=== PATIENT | male | born 1995 ===

== ENCOUNTER 2017-03-16 16:31 | Emergency (ER) | payer BC ==
[2017-03-16 16:38] VITALS: BP 110/61; PULSE 72; RESP 16; TEMP 98.6; O2SAT 98
--- NOTE | 2017-03-16 17:07 | ED PDOC ---
Lower Extremity Pain/Injury Time Seen by Provider: 03/16/17 17:00 Chief Complaint (Nursing): Lower Extremity Problem/Injury Chief Complaint (Provider): Right Ankle Pain History Per: Patient History/Exam Limitations: no limitations Onset/Duration Of Symptoms: Hrs Current Symptoms Are (Timing): Still Present Additional Complaint(s): Kris Grant is a 21 year old male that presents to the ED after he sustained an injury to his right ankle while playing soccer. Patient reports that while he was running he ran into another player, with his knee striking the other player's knee. Patient states he then inverted his right ankle, causing his right ankle pain. Past Medical History Reviewed: Historical Data, Nursing Documentation, Vital Signs Vital Signs: Last Vital Signs Temp 98.6 F 03/16/17 16:34 Pulse 72 03/16/17 16:34 Resp 16 03/16/17 16:34 BP 110/61 03/16/17 16:34 Pulse Ox 98 03/16/17 16:34 - Medical History PMH: No Chronic Diseases - Family History Family History: States: Unknown Family Hx - Home Medications Home Medications: Ambulatory Orders Medication Instructions Recorded Naproxen 1 tab PO Q12 PRN #14 tab 03/16/17 - Allergies Allergies/Adverse Reactions: Allergies Allergy/AdvReac Type Severity Reaction Status Date / Time No Known Allergies Allergy Verified 03/16/17 16:34 Review of Systems Musculoskeletal: Positive for: Leg Pain (right ankle pain) Physical Exam - Reviewed Nursing Documentation Reviewed: Yes Vital Signs Reviewed: Yes - Physical Exam Appears: Positive for: Non-toxic, No Acute Distress Head Exam: Positive for: ATRAUMATIC, NORMOCEPHALIC Skin: Positive for: Normal Color, Warm Eye Exam: Positive for: Normal appearance, EOMI, PERRL Cardiovascular/Chest: Positive for: Regular Rate, Rhythm. Negative for: Murmur Respiratory: Positive for: Normal Breath Sounds. Negative for: Wheezing Pulses-Dorsalis Pedis (L): 2+ Pulses-Dorsalis Pedis (R): 2+ Pulses-Post. Tibialis (L): 2+ Pulses-Post. Tibialis (R): 2+ Extremity: Positive for: Other (Pain to right achilles tendon, but able to flex and extend right toe without difficulty. Pain behind right medial malleolus. 5/ 5 strength in all extremities. ). Negative for: Normal ROM (limited ROM right ankle due to pain) Neurologic/Psych: Positive for: Alert, Oriented. Negative for: Motor/Sensory Deficits - ECG O2 Sat by Pulse Oximetry: 98 (RA) Pulse Ox Interpretation: Normal - Progress ED Course And Treament: xry of tib fib: neg for fx xry of ankle: neg for fx xry of heel: neg for fx Patient has moderate pain by achilles tendon/heel. ?fatpad noted posterior d/ w podiatry resident seen by resident in ED. placed in posterior splint. Will f/u with dr. urena this week. Medical Decision Making Medical Decision Making: Impression: Right Ankle Injury Plan: * X-Ray Right Ankle * X-Ray Right Knee * X-Ray Right Tibia Fibula * Reevaluation Scribe Attestation: Documented by Rasheeda Smith, acting as a scribe for Ivory Ramirez PA-C. Provider Scribe Attestation: All medical record entries made by the Scribe were at my direction and personally dictated by me. I have reviewed the chart and agree that the record accurately reflects my personal performance of the history, physical exam, medical decision making, and the department course for this patient. I have also personally directed, reviewed, and agree with the discharge instructions and disposition. Disposition - Clinical Impression Clinical Impression: Ankle injury - Patient ED Disposition Is Patient to be Admitted: No - Disposition Referrals: Chip Crespo MD [Staff Provider] - Disposition Time: 20:36 Condition: FAIR Additional Instructions: PLEASE F/U WITH DR. UREAN [facility] DYANA URENA Prescriptions: Naproxen 1 tab PO Q12 PRN #14 tab PRN Reason: Pain, Moderate (4-7) Instructions: Ankle Sprain (ED) Forms: [employer] (Luxembourgish), [facility] ED School/Work Excuse Print Language: GU[place]
--- NOTE | 2017-03-16 18:16 | RAD ---
PROCEDURE: Radiographs of the right tibia and fibula. HISTORY: INJURY COMPARISON: None available. TECHNIQUE: Frontal and lateral views obtained. FINDINGS: BONES: No fracture or destructive lesion. JOINT SPACES: Unremarkable. OTHER FINDINGS: None. IMPRESSION: Unremarkable radiographs of the right tibia and fibula.
--- NOTE | 2017-03-16 18:17 | RAD ---
PROCEDURE: Right Ankle Radiographs. HISTORY: ANKLE INJURY COMPARISON: None FINDINGS: BONES: Normal. No fracture. JOINTS: Normal. No osteoarthritis. Ankle mortise maintained. Talar dome intact. Subtalar joint is unremarkable. No ankle joint effusion is seen. Base of the 5th metatarsal is intact. SOFT TISSUES: Normal. OTHER FINDINGS: None. IMPRESSION: Normal right ankle radiographs.
--- NOTE | 2017-03-16 18:18 | RAD ---
PROCEDURE: Right Knee Radiographs. HISTORY: KNEE INJURY COMPARISON: None. FINDINGS: BONES: Normal. No fracture. Three views were performed with 4 images to cover the patellar region. JOINTS: Normal. No osteoarthritis. JOINT EFFUSION: No joint effusion. OTHER FINDINGS: Mild prepatellar soft tissue swelling is not excluded. No loose body is seen. IMPRESSION: No fracture.
--- NOTE | 2017-03-17 08:29 | RAD ---
PROCEDURE: Radiographs of the right calcaneus/hindfoot. HISTORY: HEEL INJURY COMPARISON: None available. TECHNIQUE: Frontal and lateral radiographs of the calcaneus. FINDINGS: No fracture or joint dislocation. No focal lesion. No calcaneal spur. IMPRESSION: Unremarkable radiographs of the right calcaneus /hindfoot.
--- NOTE | 2017-03-17 15:56 | CP.PCM.CON ---
History of Present Illness - History of Present Illness History of Present Illness: Podiatry Consult Note - Dr. Hernandes 21 year old male patient unremarkable PMHx seen in ED for right ankle pain. Patient states at approximately 11:00 this AM he was playing soccer and struck his right knee into another player while running, which resulted in him twisting his ankle and falling. Denies loss of consciousness. Patient states when he inverted his shoe stayed stuck in the grass while he fell over. Patient states has been ambulate on his right lower extremity though with difficulty. Patient denies N/V/F/D/C/SOB. Offers no other pedal complaints at this time. Review of Systems - Review of Systems All systems: reviewed and no additional remarkable complaints except (as per HPI ) Past Patient History - Infectious Disease Hx of Infectious Diseases: None - Past Social History Smoking Status: Never Smoked - PSYCHIATRIC Hx Substance Use: No Meds Home Medications: Home Medication List Medication Instructions Recorded Confirmed Type Naproxen 1 tab PO Q12 PRN #14 tab 03/16/17 Rx Allergies/Adverse Reactions: Allergies Allergy/AdvReac Type Severity Reaction Status Date / Time No Known Allergies Allergy Verified 03/16/17 16:34 Physical Exam - Constitutional Appears: Well, Non-toxic, No Acute Distress - Extremities Exam Additional comments: RLE focused physical exam: VASC: DP and PT pulses palpable 2/4. CFT <3 seconds to all digits x5. TG warm to cool. Perimalleolar edema noted. Hair growth appreciated. NEURO: Gross sensation intact. DERM: No ecchymosis noted. No open lesions noted. Skin appears well hydrated. ORTHO: Pain on palpation anterior to Achilles insertion. Pain on palpation posterior to lateral malleolus. No pain on palpation medial malleolus. No pain on palpation ATFL/CFL/PTFL. No pain on palpation deltoid ligaments. No pain on palpation Achilles tendon. Mild tenderness to palpation Achilles insertion. No pain upon calcaneal squeeze. No pain upon compression of tibia and fibula. Ankle joint ROM decreased secondary to guarding. Muscle strength 5/5 for all dorsiflexors, plantarflexors, inverters, and everters with pain upon dorsiflexion. No pain on palpation styloid process. No pain on palpation peroneal tendons. (-)Tinels sign. Negative Baez test. - Neurological Exam Neurological exam: Alert, Oriented x3 - Psychiatric Exam Psychiatric exam: Normal Affect, Normal Mood Results - Vital Signs Recent Vital Signs: Last Vital Signs Temp 98.6 F 03/16/17 16:34 Pulse 72 03/16/17 16:34 Resp 16 03/16/17 16:34 BP 110/61 03/16/17 16:34 Pulse Ox 98 03/16/17 20:36 Assessment & Plan - Assessment and Plan (Free Text) Assessment: 21 year old male unremarkable PMHx right right ankle sprain Plan: Patient seen and evaluated in ED Discussed with attending, Dr. Hernandes R knee XR reviewed - negative for acute fracture R ankle XR reviewed - negative for acute fracture R tibia/fibula XR - negative for acute fracture R heel XR - negative for acute fracture Posterior splint applied to RLE Patient to be NWB in posterior splint with the assistance of crutches Recommend RICE therapy Recommend extra strength tylenol prn pain Recommend naproxyn Patient advised to keep posterior splint clean/dry/intact until follow up with Dr. Hernandes Patient is to follow up with Dr. Hernandes in [place] office this week Friday/ Friday without fail Stable from podiatry standpoint Thank you for allowing podiatry to partake in the care of this patient
== END 2017-03-16 22:05 | disposition home or self-care (01) ==
LOC: H.ER 16:31
DX: S93.401A Sprain of unspecified ligament of right ankle, initial encounter (principal); W51.XXXA Accidental striking against or bumped into by another person, initial encounter; Y93.66 Activity, soccer